=== PATIENT | female | born 1955 | race Caucasian/White ===

== ENCOUNTER 2020-01-22 07:56 | Inpatient (IN) ==
[2020-01-22] MEDS ORDERED: Clindamycin 900 MG/50 ML 900 MG/50 ML IV.SOLN IVPB ONE (08:22)
[2020-01-22] MEDS ORDERED: Ringers Solution, Lactated 1,000 ML IVC SCH ×2 (08:30→12:13)
[2020-01-22] MEDS ORDERED: *HR* Midazolam HCl 2 MG/2 ML VIAL ONE ×2 (09:08→09:33)
[2020-01-22] MEDS ORDERED: Lidocaine -MPF 2% 2 ML VIAL ONE (09:08)
[2020-01-22] MEDS ORDERED: Dexamethasone 4 MG/ML VIAL ONE (09:08)
[2020-01-22] MEDS ORDERED: Lidocaine HCL 4 ML Topical Solution (Laryng-O-Jet Kit Sterile Pak) TP ONE (09:08)
[2020-01-22] MEDS ORDERED: *HR* Propofol 200 MG/20 ML VIAL IVP ONE (09:08)
[2020-01-22] MEDS ORDERED: *HR* Succinylcholine 200 MG/10 ML VIAL IVP ONE (09:08)
[2020-01-22] MEDS ORDERED: Ondansetron 4 MG/2 ML VIAL ONE (09:08)
[2020-01-22] MEDS ORDERED: *HR* FentaNYL (PF) 100 MCG/2 ML VIAL ONE ×2 (09:08→09:33)
[2020-01-22] MEDS ORDERED: *HR* Promethazine 25 MG/ML VIAL IVP PRN (09:23)
[2020-01-22] MEDS ORDERED: *HR* HYDROmorphone (PF) 1 MG/ML SYRINGE IVP PRN (09:23)
[2020-01-22] MEDS ORDERED: *HR* Labetalol 20 MG/4 ML SYRINGE IVP PRN (09:23)
[2020-01-22] MEDS ORDERED: Ondansetron 4 MG/2 ML VIAL IVP PRN ×2 (09:23→12:13)
[2020-01-22] MEDS ORDERED: ROPIVACAINE/PF/NS 0.25% 1 EACH SYRINGE INTRAART ONE (09:34)
[2020-01-22] MEDS ORDERED: Ropivacaine/PF 0.5% 30 ML VIAL ONE (09:34)
[2020-01-22] MEDS ORDERED: Ethanol\\Acetic Acid\\Na Ace\\Ben 1,000 ML IRRIG.SOLN IR ONE (09:47)
[2020-01-22] MEDS ORDERED: *HR* PHENYLEPHRINE 1,000 MCG/10 ML SYRINGE IVP ONE (10:14)
[2020-01-22] MEDS ORDERED: EPHEDrine 50 MG/ML VIAL ONE (10:16)
[2020-01-22] MEDS ORDERED: SUMAtriptan succinate 50 MG TABLET PO PRN (12:13)
[2020-01-22] MEDS ORDERED: *HR* OxyCODONE Immed Rel 5 MG TABLET PO PRN (12:13)
[2020-01-22] MEDS ORDERED: *HR* OxyCODONE/APAP 5/325 TABLET PO PRN (12:13)
[2020-01-22] MEDS ORDERED: MOM Conc 10 ML UD.LIQ PO PRN (12:13)
[2020-01-22] MEDS ORDERED: Sennosides 8.6 MG TABLET PO PRN (12:13)
[2020-01-22] MEDS ORDERED: Naloxone 0.4 MG/ML INJ IVP PRN (12:13)
[2020-01-22 12:43] LABS: Hematocrit 41.5 % (35.3-44.9); Hemoglobin 13.7 g/dL (11.5-15.4)
[2020-01-22 14:14] VITALS: BP 108/65
[2020-01-22] MEDS ORDERED: *HR* Enoxaparin 30 MG/0.3 ML SYRINGE SQ SCH ×3 (14:45→18:00)
[2020-01-22] MEDS ORDERED: Clindamycin 900 MG/50 ML 900 MG/50 ML IV.SOLN IVPB SCH ×2 (15:00→18:00)
[2020-01-23] MEDS ORDERED: atenoloL 25 MG TABLET PO SCH (09:00)
[2020-01-23] MEDS ORDERED: Cholecalciferol (D-3) 1,000 UNIT (25MCG) TABLET PO SCH (09:00)
[2020-01-23] MEDS ORDERED: Aspirin Enteric Coated 81 MG Tablet PO SCH (09:00)
== END 2020-01-22 16:32 | disposition home health service (06) | DRG 322 ==
LOC: SAMDAY 07:56 → 3NENU 12:01
PROVIDERS: ADMIT Orthopaedic Surgery; ATTEND Orthopaedic Surgery